=== PATIENT | female | born 1955 | race African-American/Black ===

== ENCOUNTER 2019-09-29 02:30 | Inpatient (IN) ==
--- NOTE | 2019-09-29 02:50 | PROVIDER DOCUMENTATION ---
HPI-Respiratory General - General Chief Complaint: Shortness of Breath Stated Complaint: sob Time Seen by Provider: 09/29/19 02:37 Source: patient, EMS Allergies/Adverse Reactions: Patient Allergies Allergy/AdvReac Type Severity Reaction Status Date / Time No Known Allergies Allergy Verified 09/29/19 03:36 Home Medications: Home Medication List Medication Instructions Recorded Confirmed Last Taken Type Amlodipine [Norvasc] 10 mg PO DAILY #30 tablet 08/03/15 09/29/19 07/03/19 Rx Carvedilol [Coreg] 25 mg PO BID #60 tablet 08/03/15 09/29/19 07/03/19 Rx Hydralazine [Apresoline] 50 mg PO TID #90 tablet 08/03/15 09/29/19 07/03/19 Rx Losartan [Cozaar] 100 mg PO DAILY #30 tablet 08/03/15 09/29/19 07/03/19 Rx Amitriptyline [Elavil] 25 mg PO HS 12/05/15 09/29/19 07/02/19 History Insulin Humulin 70/30 [Humulin 14 unit SUBQ BID 12/05/15 09/29/19 07/02/19 History 70/30] Omeprazole 20 mg PO DAILY 12/05/15 09/29/19 07/02/19 History Furosemide [Lasix] 40 mg PO DAILY 12/07/15 09/29/19 07/02/19 History Losartan Potassium 100 mg PO DAILY 09/29/19 09/29/19 Unknown History - History of Present Illness-Resp Nature of Presenting Problem: Patient states she started to have sob since yesterday. She has a history of renal failure, HTN, and CHF. Denies chest pain Quality of Pain: reports: none Severity in ED: reports: moderate Onset/Duration: reports: 24 hours ago Timing: reports: still present, getting worse Context: denies: recent foreign travel, insect bite (possible tick), recent chemotherapy, multiple patients with similar complaints, recent URI, out of meds, sports/exercise, aspiration/choking, other Exposure: reports: unknown cause Cough Quality/Degree: reports: no cough Current Respiratory Medication Therapy: Initiated none Associated Symptoms: reports: denies symptoms Similar Symptoms Previously?: Yes Recently seen or treated by another doctor?: No Review of Systems - Adult - REVIEW OF SYSTEMS - ADULT Constitutional: reports: no symptoms reported Eyes: reports: no symptoms reported Ears, Nose, Mouth & Throat: reports: no symptoms reported Cardiovascular: reports: no symptoms reported Respiratory: reports: see HPI Gastrointestinal: reports: no symptoms reported Musculoskeletal: reports: no symptoms reported Integumentary: reports: no symptoms reported Neurological: reports: no symptoms reported Psychiatric: reports: no symptoms reported Endocrine: reports: no symptoms reported Hematologic/Lymphatic: reports: no symptoms reported Allergic/Immunologic: reports: no symptoms reported Past History - Adult - PAST MEDICAL HISTORY-ADULT Review of Records: reports: Old Records Reviewed, Nursing Assessment Review Major Childhood Illnesses: reports: denies history Cardiovascular: reports: CHF, HTN Respiratory: reports: denies history Gastrointestinal: reports: denies history Obstetrical/Gynecological: reports: denies history Genitourinary: reports: kidney disease (dialysis) Musculoskeletal: reports: denies history Neurological: reports: denies history Psychiatric: reports: denies history Endocrine/Immune: reports: Diabetes Other Conditions: reports: denies history - PRIOR SURGERIES/PROCEDURES Surgical/Procedure History: reports: none - IMMUNIZATION STATUS Childhood Immunizations: See Nurse Assessment Flu Vaccine: See Nurse Assessment - FAMILY HISTORY Family History: reviewed, not pertinent Physical Exam-General - CONSTITUTIONAL General Appearance: moderate distress, obese - EYES Eyes: PERRL/EOMI, pink conjunctivae - HEAD, EARS, NOSE, MOUTH & THROAT HENMT: normocephalic/atraumatic, normal ENT inspection, TM obscurred by cerumen - NECK Neck: non-tender, full range of motion - RESPIRATORY Respiratory: chest non-tender, rhonchi - CARDIOVASCULAR Cardiovascular: no edema, no gallop, no murmur - GASTROINTESTINAL (ABDOMEN) Abdominal Exam: normal bowel sounds, non tender, soft, no organomegaly - LYMPHATIC Lymphatic: no adenopathy, axilla node tender - MUSCULOSKELETAL Back Exam: normal inspection, no CVA tenderness Extremity: normal range of motion, non-tender, no pedal edema, no calf tenderness - SKIN Integumentary: normal color, normal turgor, warm/dry - NEUROLOGIC Neurologic: fine arts model II-XII nml as tested, grossly normal - PSYCHIATRIC Psych/Mental Status: normal mood/affect, normal thought content - HEART Score HEART Score: History: Slightly Suspicious HEART Score: Age: > or = 65 Years HEART Score: Risk Factors for Atherosclerotic Disease: 1 or 2 Risk Factors Progress - PLAN OF CARE/RESULTS Progress/Plan/Lab Results: Vital Signs - 8 hr 09/29/19 02:35 09/29/19 02:45 Temperature 97.6 F Pulse Rate 94 H Respiratory Rate 24 Blood Pressure 144/72 O2 Sat by Pulse Oximetry 99 100 Laboratory Results - last 24 hr 09/29/19 09/29/19 09/29/19 03:00 03:00 03:00 WBC RBC Hgb Hct MCV MCH MCHC RDW Std Deviation Plt Count MPV Immature Gran % (Auto) Neut % (Auto) Lymph % (Auto) [place] % (Auto) Eos % (Auto) Baso % (Auto) Immature Gran # (Auto) Neut # (Auto) Lymph # (Auto) [place] # (Auto) Eos # (Auto) Baso # (Auto) PT INR PTT (Actin FS) Sodium 134 L Potassium 5.0 Chloride 92 L Carbon Dioxide 27 Anion Gap 15 BUN 55 H Creatinine 4.8 H Estimated GFR/1.73 m2 11 BUN/Creatinine Ratio 11 Glucose 380 H Calculated Osmolality 299 Calcium 9.2 Total Bilirubin 0.30 AST 16 ALT 11 Alkaline Phosphatase 318 H Creatine Kinase 115 Troponin T High Sens [id number] Pept 52141 H Total Protein 6.7 Albumin 3.7 Globulin 3.0 Albumin/Globulin Ratio 1.2 Plasma Lactate 0.9 09/29/19 09/29/19 09/29/19 03:00 03:00 03:00 WBC 12.61 H RBC 4.17 L Hgb 10.1 L Hct 33.2 L MCV 79.6 L MCH 24.2 L MCHC 30.4 L RDW Std Deviation 16.1 H Plt Count 306 MPV 10.2 Immature Gran % (Auto) 0.3 Neut % (Auto) 83.8 H Lymph % (Auto) 8.8 L [place] % (Auto) 5.5 Eos % (Auto) 1.0 Baso % (Auto) 0.6 Immature Gran # (Auto) 0.04 Neut # (Auto) 10.56 H Lymph # (Auto) 1.11 L [place] # (Auto) 0.69 H Eos # (Auto) 0.13 Baso # (Auto) 0.08 PT 14.1 INR 1.08 PTT (Actin FS) 35.6 Sodium Potassium Chloride Carbon Dioxide Anion Gap BUN Creatinine Estimated GFR/1.73 m2 BUN/Creatinine Ratio Glucose Calculated Osmolality Calcium Total Bilirubin AST ALT Alkaline Phosphatase Creatine Kinase Troponin T High Sens 54 H [id number] Pept Total Protein Albumin Globulin Albumin/Globulin Ratio Plasma Lactate Orders Category Date Time Status Cardiac Monitoring NOW Care 09/29/19 02:46 Active IV Insertion NOW Care 09/29/19 02:46 Completed NEWS Score >or=5:Order NEWS Bundle S.O. NOW Care 09/29/19 02:45 Active Notify Provider of NEWS Score NOW Care 09/29/19 02:46 Active CHEST-PORTABLE [RAD] Stat Exams 09/29/19 02:45 Taken BLOOD CULTURE [BLDCUL] Stat Lab 09/29/19 03:35 Results CBC WITH DIFF [HEME] Stat Lab 09/29/19 03:00 Completed CK PROFILE [SP CHEM] Stat Lab 09/29/19 03:00 Completed COMPREHENSIVE METABOLIC PANEL [CHEM] Stat Lab 09/29/19 03:00 Completed LACTATE, PLASMA [CHEM] Lab 09/29/19 03:00 Completed LACTATE, PLASMA [CHEM] Lab 09/29/19 06:00 Uncollected LACTATE, PLASMA [CHEM] Lab 09/29/19 09:00 Uncollected PRO B-NATRIURETIC PEPTIDE Stat Lab 09/29/19 03:00 Completed PROTIME WITH INR [COAG] Stat Lab 09/29/19 03:00 Completed PTT [COAG] Stat Lab 09/29/19 03:00 Completed TROPONIN T HIGH SENSITIVITY Stat Lab 09/29/19 03:00 Completed URINALYSIS W/POSS RFLX CULT [URINALYSIS] Stat Lab 09/29/19 02:46 Uncollected O2 Per Protocol Stat Oth 09/29/19 02:46 Active EKG [EKG] Stat Ther 09/29/19 02:51 Ordered Result Diagrams: 09/29/19 03:00 09/29/19 03:00 - XRAY 1 XRAY Study: Chest (general haziness with a more pronounced infiltrate in the left lower lobe) Departure - Departure Date of Disposition Decision: 09/29/19 Time of Disposition Decision: 04:54 DIAGNOSIS: CHF (congestive heart failure) Qualifiers: Heart failure type: systolic Heart failure chronicity: acute on chronic Qualified Code(s): I50.23 - Acute on chronic systolic (congestive) heart failure Renal failure Qualifiers: Renal failure chronicity: chronic Chronic kidney disease stage: stage 5, not on chronic dialysis Qualified Code(s): N18.5 - Chronic kidney disease, stage 5 Disposition: ADMITTED INPATIENT 09 Certified Medical Emergency: Emergent Condition: Serious Referrals and Follow-Ups: None,PCP [Primary Care Provider] - - Critical Care Note This patient required my direct & personal management of CC.: No Attestation - Physician/ BRIAN Attestation Patient care was provided by Advanced Practice Provider:: No The physician spent face to face time with patient:: Yes Advanced Practice Provider documentation review:: Supervising physician onsite and consulted in the evaluation and care of this patient. The physician did have a face to face encounter with the patient.
[2019-09-29 03:22] LABS: BASO# 0.08 X1000 (0.0-0.2); BASO% 0.6 % (0.0-0.8); EOS# 0.13 X1000 (0.0-0.7); HEMATOCRIT 33.2 % (37.0-47.0); HEMOGLOBIN 10.1 g/dL (12.0-16.0); IMM GRAN# 0.04 X1000 (0.0-0.04); IMM GRAN% 0.3 % (0.0-0.5); LYMPH# 1.11 X1000 (1.2-3.4); LYMPH% 8.8 % (20.5-51.1); MCH 24.2 PG (27-31); MCHC 30.4 g/dL (33-37); MCV 79.6 FL (81-99); MONO# 0.69 X1000 (0.11-0.59); MONO% 5.5 % (1.7-9.3); MPV 10.2 FL (7.4-10.4); NEUT# 10.56 X1000 (1.4-6.5); NEUT% 83.8 % (42.2-75.2); PLT 306 X1000 (130-400); RBC 4.17 XMIL (4.2-5.4); RDW 16.1 % (11.5-14.5); WBC 12.61 X1000 (4.8-10.8)
[2019-09-29 03:31] LABS: INR 1.08; PROTIME 14.1 Seconds (11.0-16.0)
[2019-09-29 03:32] LABS: PTT 35.6 Seconds (22.3-41.8)
[2019-09-29 03:37] LABS: ALB/GLOB RATIO 1.2; ALBUMIN 3.7 g/dL (3.5-5.0); CALCIUM 9.2 mg/dL (8.8-10.2); CREATININE 4.8 mg/dL (0.5-0.9); TOTAL BILIRUBIN 0.3 mg/dL (0.20-1.00); TOTAL PROTEIN 6.7 g/dL (6.3-8.3)
--- NOTE | 2019-09-29 05:24 | EKG Report ---
Test Performed on : 09/29/2019 03:27:53 AM Test Reason : sob Blood Pressure : / mmHG Vent. Rate : 090 BPM Atrial Rate : 090 BPM P-R Int : 186 ms QRS Dur : 094 ms QT Int : 398 ms P-R-T Axes : 064 054 057 degrees QTc Int : 486 ms Normal sinus rhythm. Possible Left atrial enlargement Low voltage QRS Septal infarct (cited on or before 09-MAY-2018) Abnormal ECG When compared with ECG of 09-MAY-2018 07:16, premature ventricular complexes. are no longer present Questionable change in initial forces of Anterior leads Unconfirmed Result
[2019-09-29] MEDS ORDERED: LASIX IV ONE (05:36)
[2019-09-29] MEDS ORDERED: ZOFRAN IV PRN (05:51)
[2019-09-29] MEDS ORDERED: TYLENOL PO PRN (05:51)
[2019-09-29] MEDS: HEPARIN SUBQ SCH ×2 (05:51→17:15)
[2019-09-29 06:12] LABS: URINE SOURCE CATH
[2019-09-29 06:16] LABS: BILIRUBIN URINE NEGATIVE (NEGATIVE); BLOOD URINE NEGATIVE (NEGATIVE); COLOR YELLOW; GLUCOSE URINE 500 mg/dL (NEGATIVE); KETONE URINE NEGATIVE (NEGATIVE); LEUKOCYTES URINE TRACE (NEGATIVE); NITRITE URINE NEGATIVE (NEGATIVE); PROTEIN URINE 100 mg/dL (NEGATIVE); SP GRAVITY URINE 1.012; TURBIDITY URINE CLEAR (CLEAR); UROBILINOGEN URINE NORMAL (NORMAL)
[2019-09-29 06:17] LABS: UR EPITHELIAL CELLS <10 /HPF (<10); URINE BACTERIA 2+ /HPF; URINE RBC <10 /HPF (<10)
--- NOTE | 2019-09-29 07:06 | Diag Imaging Result Doc PS360 ---
CHEST-PORTABLE - 09/29/2019 INDICATION: shortness of breath COMPARISON: 05/09/2018 FINDINGS: There is worsening cardiomegaly and pulmonary vascular congestion. There are extensive central infiltrates bilaterally. No pneumothorax or large pleural effusion. IMPRESSION: Congestive heart failure. Electronically signed by Amari Hayes 09/29/2019 7:03 AM
--- NOTE | 2019-09-29 07:28 | HISTORY AND PHYSICAL ---
CHIEF COMPLAINT: Shortness of breath. HISTORY OF PRESENT ILLNESS: This is a pleasant 64-year-old -[place]ish female who comes into the emergency room having shortness of breath that started yesterday. She has a history of end- stage renal disease with hemodialysis. I believe she goes Saturday, , Saturday. She states that she has not missed any of her dialysis treatments. She also has a history of hypertension, congestive heart failure and diabetes mellitus type 2, now insulin-dependent. She does admit that while in quarantine she has been drinking soda, eating chips and canned soups. She denies having foreign travel and no upper respiratory symptoms. No fever, chills. She also has not traveled within the [place] recently. Chest x-ray in the emergency room showed increased pulmonary vascular congestion. The greatest areas are the bilateral lower lobes. She will be admitted for further evaluation and treatment. PAST MEDICAL HISTORY: See HPI. PREVIOUS SURGICAL HISTORY: Cholecystectomy, sections, dialysis access placement. ALLERGIES: No known drug allergies. FAMILY HISTORY: Positive for diabetes and heart disease. SOCIAL HISTORY: Former smoker. Denies any current tobacco use. No alcohol. No illicit drugs. HOME MEDICATIONS: Losartan potassium 100 mg p.o. daily, amitriptyline 25 mg p.o. nightly, amlodipine 10 mg p.o. daily, carvedilol 25 mg p.o. b.i.d., furosemide 40 mg p.o. daily, hydralazine 50 mg p.o. t.i.d., Humulin insulin 70/30, 14 units subcutaneously b.i.d., omeprazole 20 mg p.o. daily. REVIEW OF SYSTEMS: Fourteen-point review of systems conducted with the patient. Pertinent positive listed above in the HPI. Aside from a dry cough, all other systems are reviewed and found to be negative. PHYSICAL EXAMINATION: VITAL SIGNS: Temperature 97.6, pulse 94, respirations 24, blood pressure 144/72, oxygen saturation 99% on nonrebreather. GENERAL: Pleasant 64-year-old female lying in the ER stretcher. She is alert and oriented x3, in no acute distress. HEENT: Head is atraumatic, normocephalic. Pupils equal, round, reactive to light. Extraocular eye movement is intact. Sclera is anicteric. Conjunctiva is pale. Oral mucosa is moist. NECK: Supple. No JVD. Mild hepatojugular reflex. Trachea is midline. No cervical lymphadenopathy. CARDIAC: S1, S2 appreciated. No murmurs, gallops, rubs. LUNGS: Decreased airway entry bilaterally, greatest area in the bilateral bases. Crepitations noted in the bilateral bases. Scattered crackles noted throughout bilateral lung hernandez. Symmetric rise and fall with respirations. ABDOMEN: Soft, nondistended, nontender. Bowel sounds present all 4 quadrants, normoactive. No pulsatile mass. No organomegaly. EXTREMITIES: No clubbing, cyanosis, trace edema, nonpitting, 2+ pedal pulses bilaterally. GENITOURINARY: No bladder distention. Patient voids. Otherwise deferred. NEUROLOGICAL: Alert and oriented x3. Cranial nerves II through XII grossly intact. DIAGNOSTIC DATA: Chest x-ray shows increased pulmonary vascular congestion, greatest at bilateral bases. LABORATORY DATA: WBC 12.61. Hemoglobin 10.1. Hematocrit 33.2. Platelet count 306. Sodium 134. Potassium 5. Chloride 92. Carbon dioxide 27. BUN 55. Creatinine 4.8. Glucose 380. High sensitivity troponin 54. ProBNP 14,640. ASSESSMENT: 1. Congestive heart failure exacerbation. 2. End-stage renal disease with hemodialysis. 3. Diabetes mellitus type 2 with hyperglycemia. 4. Hypertension. PLAN: Admit patient to the medical floor. Will consult Dr. Young for regularly scheduled hemodialysis. Will give the patient 80 mg of Lasix IV now which she still makes urine. Echocardiogram for today. Blood cultures x2 have been sent. Check a hemoglobin A1c. Continue home insulin. Add sliding scale with fingersticks q AC and nightly. Will continue patient's home dose of Lasix tomorrow morning. Continue all antihypertensives. Further recommendations per patient clinical course. Dictated by USHA Palencia for Jill Nelson MD cc: USHA Palencia MD Joel A. Powell, MD Reginald D. Gladish, MD Independent exam done at bedside with PHYSICIAN REPRESENTATIVE. Answered patient's questions and discussed the above plan of care with PHYSICIAN REPRESENTATIVE. TONY
[2019-09-29] MEDS: HUMALOG SUBQ SCH ×4 (07:41→21:46)
[2019-09-29] MEDS: PRILOSEC PO SCH (07:47)
[2019-09-29] MEDS ORDERED: NS 1,000 ML IV PRN (08:33)
[2019-09-29] MEDS ORDERED: NS 2,000 ML MISC PRN (08:33)
--- NOTE | 2019-09-29 11:13 | NEPHROLOGY CONSULTATION ---
DATE: 09/29/2019 REASON FOR CONSULTATION: ESRD with HD/CHF, volume overload. ATTENDING PHYSICIAN: Dr. Nathen Collins. HISTORY OF PRESENT ILLNESS: Ms. Arauz is a 64-year-old woman who is well known to us from the outpatient dialysis arena. She has CKD 5D secondary to diabetes. Also has hypertension. No history of heart disease. She receives her routine treatment every Saturday, and Saturday. She states she was well until about 10 p.m. last night when she began having shortness of breath. She had a cough with white sputum. No blood, no purulence. No chills, fevers, sweats, night sweats. Symptoms were progressive overnight, ultimately prompting her to come to the emergency room for evaluation. Her evaluation happened at 02:37. At that time, blood pressure was 144/72 with a heart rate of 94, respiratory rate of 24 on a non- rebreather mask. Initial chest x-ray disclosed pulmonary edema with extensive central infiltrates bilaterally but no lateralizing findings suggestive of pneumonia. At the time of my exam, she is still on a closed face mask but she is somewhat improved. Again, no chest pain throughout this, no nausea, diaphoresis or other anginal symptoms. To her knowledge, she has not been gaining or losing weight. Appetite is normal. No nausea, vomiting, diarrhea, etc. PAST MEDICAL HISTORY: As above. HOME MEDICATIONS: Include amlodipine, carvedilol, hydralazine, losartan, insulin, omeprazole, amitriptyline. ALLERGIES: None. SOCIAL HISTORY: She lives alone. No alcohol or tobacco. FAMILY HISTORY: Obtained and otherwise noncontributory. REVIEW OF SYSTEMS: Obtained and otherwise noncontributory. PHYSICAL EXAMINATION: Vital Signs: Blood pressure 152/78, heart rate 86, respirations 14, afebrile. Generally: A middle-aged woman, lying in bed at 45 degrees on a closed face mask but in no distress. Skin: Warm and dry. No rashes, diaphoresis etc. HEENT: Pupils equal, round. Conjunctivae pink, moist. Oropharynx not examined. Neck: Trachea is midline. Neck veins are not appreciated. Cardiovascular: PMI nondisplaced. Regular rate and rhythm. Mild tachycardia. No gallops, no murmurs. Lungs: Have equal breath sounds. No crackles, wheezes, accessory muscle use or retractions. Abdomen: Soft, nontender. Bowel sounds are present. No organomegaly, masses bruits. Extremities: Trace edema. No clubbing or cyanosis. Neurologic: Nonfocal. IMPRESSION AND PLAN: Congestive heart failure. We will attempt to manage this using hemodialysis. She is currently on her routine treatment and we will attempt 4 L ultrafiltration as her blood pressure allows. Reassess her chest x-ray thereafter. The most recent echo in the computer is from April of last year, at which time she had left atrial enlargement and mild mitral regurgitation. Pulmonary artery pressure was 37 and there is no mention of LV dysfunction. LVEF was 55%. I will repeat this study. Repeat chest x-ray after dialysis. We will repeat her troponin as well. cc: Bobo Young MD
--- NOTE | 2019-09-29 15:07 | Diag Imaging Result Doc PS360 ---
EXAM: CHEST-2 VIEWS 09/29/2019 HISTORY: reassess pulmonary edema TECHNIQUE: AP upright and lateral chest at 1458 COMMENT: The alveolar opacities present previously on 09/29/2019 bilaterally have diminished somewhat. There is some increase in pleural fluid however bilaterally. IMPRESSION: Improved pulmonary edema. Bilateral pleural effusions. Electronically signed by Jesus Rosas 09/29/2019 3:05 PM
[2019-09-29] MEDS: APRESOLINE PO SCH ×3 (15:26→20:54)
[2019-09-29] MEDS: HUMULIN 70/30 SUBQ SCH ×2 (15:27→17:16)
[2019-09-29] MEDS: COREG PO SCH ×2 (15:28→20:54)
[2019-09-29] MEDS: COZAAR PO SCH (15:31)
[2019-09-29] MEDS: NORVASC PO SCH (15:31)
[2019-09-29] MEDS: ELAVIL PO SCH (20:54)
--- NOTE | 2019-09-30 00:29 | ECHO REPORT ---
ORDER DATE: 09/29/2019 MEASUREMENTS: Left ventricular internal diameter in diastole 4.6. Left ventricular internal diameter in systole 3.5. Septal thickness 1.1. Posterior wall thickness 0.9. Aortic root 3.3. Left atrium 3.8. SUMMARY: 1. Adequate quality study. 2. Aortic valve is sclerotic but appears to open adequately on 2-dimensional images. The peak gradient across the aortic valve is 18 mmHg with a mean gradient of 9 mmHg. The calculated aortic valve area is greater 1.5 cm2. Mild aortic stenosis is suggested. There is mild aortic regurgitation. Mitral annular calcification is demonstrated with mild mitral regurgitation. Tricuspid and pulmonic valves are without evidence of structural abnormality with trace tricuspid regurgitation and mild pulmonic insufficiency. The aortic root is normal in size. 3. Normal left ventricular dimensions demonstrated. The estimated left ventricular ejection fraction approximately 55%. No regional wall motion abnormalities evident. Left atrium is mildly enlarged on 2-dimensional images. Right atrium and right ventricle are normal in size with normal right ventricular systolic function. 4. No pericardial effusion. 5. Appearance of inferior vena cava suggests normal central venous pressure. CONCLUSIONS: 1. Aortic valve sclerosis with mild aortic stenosis and mild aortic regurgitation. 2. Mitral annular calcification with mild mitral regurgitation. 3. Estimated left ventricular ejection fraction approximately 55%. 4. Mild left atrial enlargement. cc: MD Kentrell Starr CRNP
[2019-09-30] MEDS: HUMALOG SUBQ SCH ×4 (06:24→23:48)
[2019-09-30] MEDS: HEPARIN SUBQ SCH ×2 (06:25→18:24)
[2019-09-30] MEDS: PRILOSEC PO SCH (06:25)
[2019-09-30 07:06] LABS: BASO# 0.12 X1000 (0.0-0.2); BASO% 0.8 % (0.0-0.8); EOS# 0.02 X1000 (0.0-0.7); EOS% 0.1 % (0.0-10.0); HEMATOCRIT 31.9 % (37.0-47.0); HEMOGLOBIN 9.7 g/dL (12.0-16.0); IMM GRAN# 0.02 X1000 (0.0-0.04); IMM GRAN% 0.1 % (0.0-0.5); LYMPH# 0.91 X1000 (1.2-3.4); LYMPH% 6.2 % (20.5-51.1); MCH 24.4 PG (27-31); MCHC 30.4 g/dL (33-37); MCV 80.2 FL (81-99); MONO# 0.98 X1000 (0.11-0.59); MONO% 6.6 % (1.7-9.3); MPV 10.2 FL (7.4-10.4); NEUT# 12.72 X1000 (1.4-6.5); NEUT% 86.2 % (42.2-75.2); PLT 265 X1000 (130-400); RBC 3.98 XMIL (4.2-5.4); RDW 16.3 % (11.5-14.5); WBC 14.77 X1000 (4.8-10.8)
[2019-09-30 07:22] LABS: LYMPHS 7 % (21-51); MONO 5 % (1-9); SEGS 88 % (42-75)
[2019-09-30 07:29] LABS: CALCIUM 9.1 mg/dL (8.8-10.2); CREATININE 3.7 mg/dL (0.5-0.9); POTASSIUM 4.8 mmol/L (3.5-5.1)
[2019-09-30] MEDS: COZAAR PO SCH (09:02)
[2019-09-30] MEDS: LASIX PO SCH (09:02)
[2019-09-30] MEDS: NORVASC PO SCH (09:02)
[2019-09-30] MEDS: COREG PO SCH ×2 (09:03→21:05)
[2019-09-30] MEDS: HUMULIN 70/30 SUBQ SCH ×2 (09:03→18:24)
[2019-09-30] MEDS: APRESOLINE PO SCH ×3 (09:03→21:05)
--- NOTE | 2019-09-30 11:38 | NEPHROLOGY PROGRESS NOTE ---
DATE: 09/30/2019 SUBJECTIVE: She is asleep in bed on closed face mask. She states they are weaning the oxygen. Shortness of breath is improved. No cough. No chills, fevers, etc. OBJECTIVE: Vital Signs: Blood pressure 140/50, heart rate 91, respirations 20, afebrile. General: No acute distress. Skin: Warm and dry. Neck: Neck veins are not appreciated. Heart: Regular. No gallops. Lungs: Equal. No crackles or wheezes. Abdomen: Soft, nontender. Bowel sounds present. Extremities: No edema, clubbing or cyanosis. IMPRESSION: Respiratory failure. Improved. Chest x-ray is improved, but still has bilateral effusions. We will work on weaning her oxygen and increasing her mobility. Remove Red catheter. Dialysis tomorrow. cc: Bobo Young MD
--- NOTE | 2019-09-30 20:49 | PROGRESS NOTE ---
DATE: 09/30/2019 SUBJECTIVE: Patient denies any new complaints. States she is breathing a little bit easier, although still not back to her baseline. Denies any fevers. PHYSICAL EXAMINATION: Temperature 98 degrees, pulse 98, respiratory 25, BP 173/62.General: Patient is pleasant. She is in minimal distress, sitting up on the side of the bed. HEENT: Normocephalic. Neck: Supple. Cardiovascular: Regular rate. Chest: Decreased but equal. No current rhonchi. No crackles. Abdomen: Soft, nondistended. Extremities: Moves all extremities. She has no edema bilaterally. Neurologic: No focal changes. She is awake, alert. ASSESSMENT: 1. Congestive heart failure. Brain natriuretic peptide is elevated at 14,698. 2. End-stage renal disease, on hemodialysis. 3. Diabetes with hyperglycemia. 4. Hypertension. PLAN: Overall she is improving. Chest x-ray is improved. We are going to continue Lasix, continue sliding scale, and we will follow. cc: Kash Collins MD
[2019-09-30] MEDS: ELAVIL PO SCH (21:04)
[2019-10-01] MEDS: HEPARIN SUBQ SCH ×2 (05:37→18:45)
[2019-10-01] MEDS: PRILOSEC PO SCH ×2 (05:37→06:20)
[2019-10-01] MEDS: HUMALOG SUBQ SCH ×4 (06:20→22:14)
[2019-10-01 08:43] LABS: HEMATOCRIT 28.9 % (37.0-47.0); HEMOGLOBIN 8.9 g/dL (12.0-16.0); MCH 24.1 PG (27-31); MCHC 30.8 g/dL (33-37); MCV 78.1 FL (81-99); MPV 9.8 FL (7.4-10.4); RBC 3.7 XMIL (4.2-5.4); RDW 16.2 % (11.5-14.5); WBC 8.36 X1000 (4.8-10.8)
[2019-10-01 09:08] LABS: ALB/GLOB RATIO 0.9; ALBUMIN 3.1 g/dL (3.5-5.0); CALCIUM 9.1 mg/dL (8.8-10.2); CREATININE 4.9 mg/dL (0.5-0.9); POTASSIUM 4.3 mmol/L (3.5-5.1); TOTAL BILIRUBIN 0.57 mg/dL (0.20-1.00); TOTAL PROTEIN 6.6 g/dL (6.3-8.3)
[2019-10-01] MEDS: LASIX PO SCH (10:10)
[2019-10-01] MEDS: COREG PO SCH ×2 (10:11→22:13)
[2019-10-01] MEDS: COZAAR PO SCH (10:11)
[2019-10-01] MEDS: NORVASC PO SCH (10:11)
[2019-10-01] MEDS: APRESOLINE PO SCH ×3 (10:11→22:13)
[2019-10-01] MEDS: HUMULIN 70/30 SUBQ SCH ×2 (10:12→18:42)
[2019-10-01] MEDS ORDERED: NS 1,000 ML IV PRN (15:24)
[2019-10-01] MEDS ORDERED: HEPARIN IV PRN (15:24)
[2019-10-01] MEDS ORDERED: NS 2,000 ML MISC PRN (15:24)
--- NOTE | 2019-10-01 18:25 | Diag Imaging Result Doc PS360 ---
EXAM: US RENAL 2 (RETROPER) COMPLETE 10/01/2019 HISTORY: dialysis with fluid volume shift TECHNIQUE: Renal ultrasound COMMENT: The kidneys are hyperechoic. The bladder is slightly distended but otherwise unremarkable in appearance. The kidneys collecting systems are somewhat distended in appearance. There is a resistive index of 0.72. There are no apparent masses. The right kidney is 9.4 x 4.7 x 4.4 cm the left kidney is 9.8 x 5.6 x 5.4 cm. IMPRESSION: Mild bilateral hydronephrosis. Medical renal disease. Electronically signed by Jesus Rosas 10/01/2019 6:22 PM
--- NOTE | 2019-10-01 19:11 | NEPHROLOGY PROGRESS NOTE ---
DATE: 10/01/2019 SUBJECTIVE: No complaints. She is in dialysis currently. No chest pain shortness of breath etc. OBJECTIVE: Vital Signs: Blood pressure 148/57, heart rate 81, respirations 16, afebrile. General: No acute distress. Skin: Warm and dry. Neck: Neck veins are not distended. Heart: Regular. No gallops. Lungs: Equal. No crackles. Abdomen: Soft, nontender. Extremities: No edema. IMPRESSION: Chronic kidney disease 5D. Continue her routine dialysis treatment today. Electrolytes/acid base in target. Moderate hyponatremia that will be addressed with dialysis. Hemoglobin is trending downward. We will remeasure in the morning. cc: Bobo Young MD
[2019-10-01] MEDS: ELAVIL PO SCH (22:14)
--- NOTE | 2019-10-02 00:30 | PROGRESS NOTE ---
DATE: 10/01/2019 SUBJECTIVE: She seems to be breathing better. OBJECTIVE: Vital signs: Blood pressure is 136/62, heart rate of 85, respiratory rate 20, temperature 98.4 degrees. Cardiovascular: Regular rate and rhythm. Pulmonary: Bilateral breath sounds clear to auscultation. Gastrointestinal: Soft, nontender, nondistended. Bowel sounds are positive. LABORATORY DATA: White count 8, hemoglobin and hematocrit 8 and 28, platelets 257,000. Sodium 127, creatinine 4.9. PROBLEM LIST: 1. Acute volume overload due to congestive heart failure and end-stage renal. We will continue diuresis as well as Lasix diuresis. 2. End-stage renal. Continue hemodialysis per renal service. 3. Type 2 diabetes. We will continue regular medications and follow closely. Sliding scale insulin is in place. DISPOSITION: Pending her clinical status. We will continue to follow. cc: Skyler Atkins MD
[2019-10-02] MEDS: PRILOSEC PO SCH (06:23)
[2019-10-02] MEDS: HEPARIN SUBQ SCH ×2 (06:23→17:00)
[2019-10-02] MEDS: HUMALOG SUBQ SCH ×4 (06:23→21:38)
[2019-10-02 06:46] LABS: MCH 24.7 PG (27-31); MCHC 30.8 g/dL (33-37); MCV 80.2 FL (81-99); MPV 9.8 FL (7.4-10.4); RBC 3.24 XMIL (4.2-5.4); WBC 4.31 X1000 (4.8-10.8)
[2019-10-02 07:06] LABS: ALBUMIN 2.4 g/dL (3.5-5.0); CALCIUM 8.7 mg/dL (8.8-10.2); CREATININE 3.4 mg/dL (0.5-0.9); PHOSPHORUS 3.8 mg/dL (2.7-4.5); POTASSIUM 3.9 mmol/L (3.5-5.1)
[2019-10-02] MEDS: APRESOLINE PO SCH ×3 (08:32→21:38)
[2019-10-02] MEDS: NORVASC PO SCH (08:32)
[2019-10-02] MEDS: LASIX PO SCH (08:33)
[2019-10-02] MEDS: COZAAR PO SCH (08:33)
[2019-10-02] MEDS: HUMULIN 70/30 SUBQ SCH ×2 (08:33→17:01)
[2019-10-02] MEDS: COREG PO SCH ×2 (08:33→21:38)
--- NOTE | 2019-10-02 11:50 | Diag Imaging Result Doc PS360 ---
EXAM: CHEST-2 VIEWS 10/02/2019 HISTORY: reassess pulmonary edema TECHNIQUE: Two views the chest COMMENT: There is a pleural effusion on the left as well as alveolar opacities in the left lower lobe. There is a granuloma in the right base. Compared to 09/29/2019 the opacity present previously in the right base and right pleural effusion have nearly completely resolved. There has been slight improvement in the left base. IMPRESSION: Residual pulmonary edema or pneumonia in the left lower lobe with left pleural effusion. Electronically signed by Jesus Rosas 10/02/2019 11:48 AM
--- NOTE | 2019-10-02 11:54 | NEPHROLOGY PROGRESS NOTE ---
DATE: 10/02/2019 SUBJECTIVE: She is lying in bed. She states that she has been up and ambulatory without shortness of breath or other complaints. OBJECTIVE: Vital Signs: Blood pressure 128/48, heart rate 78, respirations 16, afebrile. General: No acute distress. Skin: Warm and dry. Neck: Neck veins are not visible in her current position. Heart: Regular without gallops. Lungs: Equal. No crackles. Abdomen: Soft, nontender. Bowel sounds are present. Extremities: No edema, clubbing or cyanosis. IMPRESSION: Volume overload, improved. She is still on O2, so I will discontinue this and measure her O2 saturation. Repeat chest x-ray. If appropriate, okay for discharge from my perspective. Electrolytes and acid-base are acceptable. Hemoglobin has trended downward. Cause is not obvious. We will check stool Hemoccult. cc: Bobo Young MD
[2019-10-02] MEDS: ELAVIL PO SCH (21:38)
[2019-10-03] MEDS: HUMALOG SUBQ SCH ×2 (06:21→11:00)
[2019-10-03] MEDS: HEPARIN SUBQ SCH (06:32)
[2019-10-03] MEDS: PRILOSEC PO SCH (06:32)
[2019-10-03] MEDS: HUMULIN 70/30 SUBQ SCH (08:15)
[2019-10-03] MEDS ORDERED: NS 2,000 ML MISC PRN (08:52)
[2019-10-03 11:18] LABS: ALBUMIN 2.9 g/dL (3.5-5.0); CALCIUM 8.6 mg/dL (8.8-10.2); CREATININE 2.2 mg/dL (0.5-0.9); PHOSPHORUS 1.8 mg/dL (2.7-4.5); POTASSIUM 3.4 mmol/L (3.5-5.1)
--- NOTE | 2019-10-03 11:18 | NEPHROLOGY PROGRESS NOTE ---
DATE: 10/03/2019 SUBJECTIVE: She is currently on dialysis. On room air. O2 saturation 97% on room air today. She has been ambulatory without difficulty. OBJECTIVE: Vital Signs: Blood pressure 145/97, heart rate 89, respirations 20, afebrile. General: In no acute distress. Lying on her left side. Skin: Warm and dry. Heart: Regular. No gallops. Lungs: Equal. No crackles. Abdomen: Soft. Nontender. Normal bowel sounds. Extremities: No edema, clubbing or cyanosis. IMPRESSION: 1. Congestive heart failure. Symptoms are resolved. Chest x-ray performed yesterday was improved, but she still has residual changes on the left base. She is on dialysis currently and we have challenged and lower her outpatient dry weight. We will communicate that to the clinic. Okay for discharge from my perspective. cc: Bobo Young MD
[2019-10-03 13:33] VITALS: BP 161/73
[2019-10-03] MEDS: APRESOLINE PO SCH ×2 (13:57→13:58)
[2019-10-03] MEDS: NORVASC PO SCH (13:58)
[2019-10-03] MEDS: COREG PO SCH (13:58)
[2019-10-03] MEDS: LASIX PO SCH (13:59)
[2019-10-03] MEDS: COZAAR PO SCH (13:59)
--- NOTE | 2019-10-08 05:31 | DISCHARGE SUMMARY ---
ADMISSION DATE: 09/29/2019 DISCHARGE DATE: 10/03/2019 FINAL DISCHARGE DIAGNOSES: 1. Fluid overload. 2. Acute on chronic diastolic congestive heart failure exacerbation. 3. Chronic kidney disease stage 5B. 4. Hypertension. 5. Insulin-dependent diabetes mellitus. 6. Urinary tract infection secondary to Enterococcus faecalis. CONSULTATIONS: Nephrology consultation with Dr. Young. IMAGIN. Portable chest x-ray performed on 09/29/2019, which revealed congestive heart failure. 2. Echocardiogram performed on 09/29/2019, which revealed mild aortic stenosis and mild aortic regurgitation. EF of 55%. 3. Chest x-ray performed on 09/29/2019, which revealed improved pulmonary edema. Bilateral pleural effusions. HOSPITAL COURSE: Ms. Arauz is a 64-year-old female with a history of chronic diastolic heart failure, chronic kidney disease on hemodialysis, who presented to the ER with a chief complaint of shortness of breath. On admission, a chest x-ray was done that revealed pulmonary edema. The patient was admitted to the hospitalist service. Nephrology was consulted, and the patient was taken for dialysis. Over the course of the hospitalization, the patient had her volume overload addressed with dialysis. The patient's respiratory status improved, and she was weaned off of supplemental oxygen. The patient was noted to have a urinary tract infection secondary to Enterococcus and was given a prescription for amoxicillin. The patient continued to improve clinically and was cleared for discharge home. DISCHARGE MEDICATIONS: 1. Elavil 25 mg oral at bedtime. 2. Norvasc 10 mg oral daily. 3. Amoxicillin 250 mg oral daily. 4. Coreg 25 mg oral twice a day. 5. Lasix 40 mg p.o. daily. 6. Hydralazine 50 mg oral 3 times a day. 7. Humulin 70/30 14 units subcutaneous twice a day. 8. Lactobacillus 1 tablet oral daily. 9. Cozaar 100 mg oral daily. 10. Omeprazole 20 mg oral daily. DISCHARGE DIET: 1800 ADA diet. Low-sodium diet. ACTIVITY: As tolerated. FOLLOWUP INSTRUCTIONS: The patient will need to follow up for her routine dialysis as scheduled by Dr. Young. cc: Yudi Power MD
== END 2019-10-03 14:36 | disposition home health service (06) | DRG 291 ==
LOC: ED 02:30 → 4N 05:59 → SUATTDRO 05:59
PROVIDERS: ATTEND Internal Medicine